=== PATIENT | female | born 2000 | race Hispanic/Latino ===

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

== ENCOUNTER 2020-07-06 13:34 | Day surgery (SDC) | payer OTHER, SELFPAY ==
[2020-07-06 14:51] VITALS: BMI 29.2
[2020-07-06] MEDS ORDERED: hydrALAZINE 20 MG/ML VIAL SLOW IVP PRN (15:03)
--- NOTE | 2020-07-06 15:11 | PDOC.FPROB ---
FMR OB H&P: HPI - History of Present Illness Chief Complaint: Contractions Indentification: 20 y/o @ 26.5 wga by 19.6 wk sono History of Present Illness: 20 y/o @ 26.5 wga by 19.6 wk bev presents to OB triage today with complaints of contractions. She stated that she started feeling contractions one week ago that last an hour at a time and when asked about the character of the pain she describes the pain as "strong" and points to her lower abdomen. She is currently having this pain as we are talking with her. She also states that 8-9 days ago she began have progressive vaginal leakage of white fluid that has soaked her underwear multiple times requiring her to change them. She does admit to intercourse once, one week ago. She states that she has also been having a headache and blurry vision which started with her last which she de livered in June of last year. She denies HTN or DM in this , however, she admits to a UTI earlier in this which was treated with antibiotics. She also admits to N/V with a couple epsiodes of the past week. She denies VD, VB, CP/SOB. She also denies dysuria, polyuria, and hematuria at this time. Primary Care Physician: [facility] FMR OB H&P: Current - Care : 2 Para: 1 Gestational age: 26.5 wga Due date: 10/07/2020 Dating Criteria: 19.6 wk sono - OB Labs Blood type: O RH: positive Antibody Screen: negative HIV: negative RPR: negative HepBsAg: negative Rubella: immune Gonorrhea: negative Chlamydia: negative 1 hour gtt: 106 3 hour GTT: 85 FMR OB H&P: History - Past Medical History PMH: -none - OB History OB History: Jun 2019: PPROM @ 36.6 wga based on [facility] records, - REFRIGERATION INSTALLER History REFRIGERATION INSTALLER History: None - Surgical History Sx History: none - Social History Social History: no tobacco, no etoh, no drug use - Family History Family History: Mother: DM Father: DM FMR OB H&P: Medications - Current Home Medications: Medication Instructions Recorded Confirmed Type Vitamin 1 tab PO DAILY #60 tab 07/17/19 07/06/20 Rx Allergies/Adverse Reactions: Allergies Allergy/AdvReac Type Severity Reaction Status Date / Time No Known Allergies Allergy Verified 07/06/20 14:52 FMR OB H&P: ROS - Review of Systems General: denies: fever/chills Eyes: reports: vision changes, double vision. denies: eye pain ENT: denies: nasal congestion, rhinorrhea Cardiovascular: denies: chest pain, palpitation, edema Respiratory: denies: cough, congestion, shortness of breath Gastrointestinal: reports: abdominal pain (lower abdominal pain), nausea, vomiting. denies: indigestion, bloating, cramping, diarrhea, constipation, bright red blood Genitourinary (Female): reports: other (leakage of fluid; white). denies: incontinence, dysuria, hematuria, polyuria, vaginal discharge, vaginal pain, vaginal bleeding Musculoskeletal: denies: pain, stiffness, tenderness Neurologic: denies: numbness, syncope Integumentary: denies: itching FMR OB H&P: Vital Signs - Heart Tones Baseline: 140 Variability: moderate Acceleration: present Deceleration: absent Category: category 1 [place] contractions every: none seen FMR OB H&P: Physical Exam - Physical Exam General: NAD, awake, alert and oriented HEENT: normocephalic and atraumatic Neck: supple Chest: non-tender to palpation Heart: RRR, normal S1/S2, no murmurs/rubs/gallops, pulses present, no edema General: CTAB, no respiratory distress, good air movement, no rales/rhonchi, no wheezing, no retractions Abdomen: gravid Musculoskeletal: normal gait and station, pulses present, FROM in all four extremities Skin: no rash, good tugor, capillary refill <2 seconds Lymphatic: no unusual bruising or bleeding Psychiatric: intact recent and remote memory, good judgement and insight, normal mood and affect - Pelvic Exam Vulva: normal hair distribution Cervix: no masses, no lesions FMR OB H&P: A/P Disposition: 20 y/o @ 26.5 wga by 19.6 wk sono presents today with complaint of feeling contractions. ##sIUP in second trimester -at 26.5 wga currently -FHTs show HR in 140s-150s, moderate variability, some accels seen, no decels, no contractions seen on toco -short interval between d/t PPROM at 36.6 wga in 06/2019, however this had poor dating and was LTC -maternal labs neg exception being varicella non-immune -maternal VSS, no severe SBPs -had UTI in 1st trimester (Klebsiella Aerogenes) txt with abx -U/S based on [facility] record from 06/07/20 shows hadlock 57.3%. Posterior placenta. Head Cephalic. ##short interval -aware ##hx of PPROM -in 06/2019 -at 36.6 however this was presumed to be poor dating d/t being LTC and poor f/u ##hx of Varicella non-immune -aware ##hx of TB risk/exposure -aware -based on [facility] records, has been in [place] for past 4 years Plan: will obtain FFN, Amnisure, VP3, GC/Chlamydia, UA. will also obtain ultrasound for cervical length before SVE. Addendum: FFN was positive. Amnisure negative. U/s for cervical length was 4.7cm. VP3, UA, Chlamydia/GC swabs pending. FHT continued to show no contractions. FHR show 14 0s-150s with cat 1 strip. In this setting, patient is not in labor, so safe for d/c. Pt has close f/u with [facility] with appointment on Jul.18, told patient to keep this appointment. Return precautions given. Told patient if she has severe/worsening abdominal pain, LOF, or vaginal bleeding to come back for evaluation. Will f/u with patient on pending results. Assessment and Plan discussed with Dr. العلي and Dr. Mcneil who were agreed with plan.
[2020-07-06 15:54] LABS: Amnisure Test No Membranes Rupture (No Rupture)
[2020-07-06 15:55] LABS: Amnisure Internal Control QC ACCEPTABLE (ACCEPTABLE)
[2020-07-06 16:09] LABS: FFN Internal QC Analyzer PASS (PASS); FFN Internal QC Cassette PASS (PASS); Fetal Fibronectin POSITIVE (Negative)
--- NOTE | 2020-07-06 16:11 | ULT ---
Obstetric sonogram Limited HISTORY: Evaluate for cervical length. FINDINGS: Transabdominal and transvaginal imaging. Cervix is closed and 4.7 cm. Single intrauterine gestation partially visualized in transverse presentation.
[2020-07-06 16:34] LABS: Bacteria/HPF None Seen HPF (None Seen); Bilirubin Negative (Negative); Blood, Urine Negative (Negative); Clarity Clear (Clear); Glucose, Urine (Dipstick) Normal (Negative); Ketone, Urine Negative (Negative); Leukocyte Negative Leu/uL (Negative); Nitrite Negative (Negative); Protein, Urine (Dipstick) Negative (Neg-Trace); RBC/HPF 0-3 HPF (0-3); Specific Gravity, Urine 1.007 (1.002-1.036); Squamous Epithelial None Seen HPF (0-3); Urobilinogen Normal mg/dL (Less than 2); WBC/HPF 0-3 HPF (0-3); pH, Urine 7.5 (5.0-9.0)
[2020-07-09 21:00] LABS: Chlam.trachomatis by PCR,Urine Not Detected (NotDetected)
== END 2020-07-06 16:41 | disposition home or self-care (01) ==
LOC: L&D/OP 13:34
PROVIDERS: ATTEND Family Medicine
DX: O47.02 False labor before 37 completed weeks of gestation, second trimester (principal); Z3A.26 26 weeks gestation of pregnancy
CPT/HCPCS: 76815; 81003; 82731; 84112; 87480; 87491; 87510; 87591; 87660

== ENCOUNTER 2020-08-22 14:26 | Day surgery (SDC) | payer OTHER ==
[2020-08-22] MEDS ORDERED: hydrALAZINE 20 MG/ML VIAL SLOW IVP PRN (15:44)
--- NOTE | 2020-08-22 16:08 | PDOC.FPROB ---
FMR OB H&P: HPI - History of Present Illness History of Present Illness: 20 yo @ 33.3 by 19.6 wk US presents with concern for LOF. Reports at 3:00 this morning she awoke in bed with yellow fluid. Due to transportation concerns, she was unable to present until now. Reports intermittent vague contractions/abdominal cramping. Reports vaginal discharge, white, that has been present during . Denies vaginal bleeding. Reports movement. She reports a hx of burning with urination at various times throughout . She is currently treated with macrobid for Klebsiella UTI, on day #4 of abx. Primary Care Physician: Marleny FMR OB H&P: Current - Care : 2 Para: 0101 Gestational age: 33.3 Due date: 10/07/20 Dating Criteria: .6 - OB Labs Blood type: O RH: positive Antibody Screen: negative HIV: negative RPR: negative HepBsAg: negative Rubella: immune Quad screen: negative Urine drug screen: negative Gonorrhea: negative Chlamydia: negative 1 hour gtt: 2hr GTT normal GBS: unknown H&H: 10.8->10.1 - Anatomy Survey Anatomy survey: @ 22.6 S=D, male, no anomalies FMR OB H&P: History - Past Medical History PMH: none - OB History OB History: Jun 2019: PPROM @ 36.6, vaginal - Surgical History Sx History: none - Social History Social History: no tobacco, alcohol, drug use - Family History Family History: mother and father: DM FMR OB H&P: Medications - Current Home Medications: Medication Instructions Recorded Confirmed Type Vitamin 1 tab PO DAILY #60 tab 07/17/19 07/06/20 Rx Allergies/Adverse Reactions: Allergies Allergy/AdvReac Type Severity Reaction Status Date / Time No Known Allergies Allergy Verified 07/06/20 14:52 FMR OB H&P: ROS - Review of Systems General: denies: fever/chills, weight/appetite/sleep changes Eyes: denies: double vision, scotomas ENT: denies: nasal congestion, sore throat Cardiovascular: denies: palpitation, edema Respiratory: denies: cough, shortness of breath Gastrointestinal: denies: nausea, vomiting, diarrhea Genitourinary (Female): reports: dysuria, vaginal discharge, contractions. denies: vaginal bleeding Musculoskeletal: denies: pain, decrease range of motion Neurologic: denies: syncope, weakness Psychological: denies: depression, anxiety FMR OB H&P: Vital Signs - Heart Tones Baseline: 140 Variability: moderate Acceleration: present Deceleration: absent Category: category 1 [place] contractions every: no consistent contractions FMR OB H&P: Physical Exam - Physical Exam General: NAD, awake, alert and oriented HEENT: normocephalic and atraumatic, MMM Neck: supple Heart: pulses present, no edema General: no respiratory distress, good air movement Abdomen: soft, gravid, non-tender Musculoskeletal: normal gait and station, FROM in all four extremities Skin: good tugor, capillary refill <2 seconds Lymphatic: no unusual bruising or bleeding Psychiatric: intact recent and remote memory, normal mood and affect - Pelvic Exam SVE: no pooling of fluid, cough test negative, mod amount of white/velásquez discharg FMR OB H&P: A/P Discussion: Date/Time: 08/22/20 1607 20 y/o @ 33.3 wga by 19.6 wk bev presents today with concern for LOF. Concern for LOF in sIUP -FHT: HR in 140s-150s, moderate variability, +accel, no decels, 3 small contractions seen in >1 hr period -maternal VSS -U/S based on [facility] record from 06/07/20 shows hadlock 57.3%. Posterior placenta. Head Cephalic. -06/2020 had +FFN, cervical length 4.7 Bacteriuria/UTI - patient with UTI in 1st trimester (Klebsiella Aerogenes) txt with abx - Was prescribed macrobid 07/28 for + urine culture as well but patient started treatment 07/19, currently taking Anemia of - Hgb 10.8->10.1, on iron supplementation Short interval - last delivery 06/2019, vaginal Hx of PPROM -at 36.6 however this was presumed to be poor dating d/t being LTC and poor f/u Hx of Varicella non-immune -IgG 370 06/26/20 Plan: No consistent contractions, amnisure negative. Continue macrobid prescribed outpatient. Vaginal discharge on exam, will follow up VP3 & GCC results with patients. Return precautions given. She has follow up with [facility] 06/24. This H&P was discussed with Dr. Grajeda who agree with the above documentation and plan. Addendum - Attending - Attending Attestation Date/Time: 08/22/201916 I personally evaluated the patient and discussed the management with Dr. Tony. I agree with the History, Examination, Assessment and Plan documented above. No e/o SROM. Significant amount of discharge. Cultures pending.
[2020-08-22 16:21] LABS: Amnisure Internal Control QC ACCEPTABLE (ACCEPTABLE)
[2020-08-22 16:27] LABS: Amnisure Test No Membranes Rupture (No Rupture)
[2020-08-24 20:37] LABS: Chlamydia by PCR Not Detected (NotDetected); GC by PCR Not Detected (NotDetected)
== END 2020-08-22 17:30 | disposition home or self-care (01) ==
LOC: L&D/OP 14:26
PROVIDERS: ATTEND Obstetrics & Gynecology
DX: O99.891 Other specified diseases and conditions complicating pregnancy (principal); N89.8 Other specified noninflammatory disorders of vagina; O99.013 Anemia complicating pregnancy, third trimester; D64.9 Anemia, unspecified; Z3A.33 33 weeks gestation of pregnancy; Z87.59 Personal history of other complications of pregnancy, childbirth and the puerperium
CPT/HCPCS: 84112; 87480; 87491; 87510; 87591; 87660

== ENCOUNTER 2020-09-28 15:50 | Inpatient (IN) | payer MEDICAID, OTHER, SELFPAY ==
[2020-09-28] MEDS ORDERED: hydrALAZINE 20 MG/ML VIAL SLOW IVP PRN (16:07)
--- NOTE | 2020-09-28 16:09 | PDOC.FPROB ---
FMR OB H&P: HPI - History of Present Illness Chief Complaint: contractions Indentification: 20 yo at 38.5 wga by 19.5 wk sono History of Present Illness: Patient is a English-speaking patient; plater helper was used to obtain history. She reports she started having contractions yesterday, off and on. Some were quite painful. She states she was checked in the clinic by her OB and was 3 cm. Her pain is mostly in the front of her abdomen, but tolerable. She denies vaginal bleeding, vaginal discharge, LOF. Endorses movement. Primary Care Physician: ESTEVAN Dobson FMR OB H&P: Current - Care : 2 Para: 0101 Gestational age: 38.5 Due date: 10/07/2020 Dating Criteria: 19.5 wk sono Course/Complications: Iron deficiency anemia in Short IPI Gram neg bacteriuria in , resolved - OB Labs Blood type: O RH: positive Antibody Screen: negative HIV: negative RPR: negative HepBsAg: negative Rubella: immune Gonorrhea: negative Chlamydia: negative GBS: negative H&H: 10.8/31.8 Platelets: 269 Additional labs: 2hr GTT: 77/102/101 Hep C neg Klebsiella UTI w/ TYLER neg Varicella Immune FMR OB H&P: History - Past Medical History PMH: Denies - OB History OB History: 1 at 36.6, PPROM w/ delivery, suboptimal dating, late to care - 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 - Family History Family History: Mother/Father: diabetes FMR OB H&P: Medications - Current Home Medications: Medication Instructions Recorded Confirmed Type Vitamin 1 tab PO DAILY #60 tab 07/17/19 07/06/20 Rx Allergies/Adverse Reactions: Allergies Allergy/AdvReac Type Severity Reaction Status Date / Time No Known Allergies Allergy Verified 07/06/20 14:52 FMR OB H&P: ROS - Review of Systems General: denies: fever/chills Eyes: denies: vision changes ENT: denies: nasal congestion, sore throat Cardiovascular: denies: chest pain Respiratory: denies: cough, shortness of breath Gastrointestinal: reports: abdominal pain. denies: nausea, vomiting Genitourinary (Female): reports: contractions. denies: dysuria, vaginal discharge, vaginal bleeding, vaginal pressure Musculoskeletal: reports: swelling (mild feet swelling). denies: pain Neurologic: denies: numbness, weakness Integumentary: denies: itching, rash Hematologic/Lymphatic: denies: prolonged or excessive bleeding Psychological: denies: depression, anxiety FMR OB H&P: Vital Signs - Maternal Vital signs: BP 117/68 - Heart Tones Baseline: 140 Variability: moderate Acceleration: present Deceleration: absent Category: category 1 [place] contractions every: 5 min FMR OB H&P: Physical Exam - Physical Exam General: NAD, awake, alert and oriented HEENT: normocephalic and atraumatic, no scleral icterus, grossly normal vision, grossly normal hearing Heart: RRR, normal S1/S2, no murmurs/rubs/gallops General: CTAB, no respiratory distress Abdomen: soft, gravid, non-tender Musculoskeletal: pulses present Neurological: no focal deficit Skin: no rash Lymphatic: no unusual bruising or bleeding Psychiatric: normal mood and affect - Pelvic Exam SVE: 3/50/-2 per RN Membranes: intact Presentation: palpated head on cervical check Estimated Weight: 7 lbs FMR OB H&P: A/P Disposition: observe on L&D for labor rule out. Discussion: Date/Time: 09/28/20 1607 20 yo at 38.5 wga here for: Contractions Labor rule out - continue to monitor for 2 hours - recheck cervix around 1845. - if significant change, consider admission. - if no change, may discharge home. - reassuring FHTs, category 1 strip This H&P was discussed with Dr. Palomo, who agrees with the above documentation and plan. Signature: Sam Carter MD PGY2
[2020-09-28 19:08] VITALS: BMI 35.3
[2020-09-28] MEDS ORDERED: NS / Oxytocin 40 units/1000ml 1,000 ML IV PRN (21:36)
[2020-09-28] MEDS ORDERED: Docusate 100 MG CAP PO PRN (21:36)
[2020-09-28] MEDS ORDERED: Lidocaine 1% (PF) 30 ML VIAL SC PRN (21:36)
[2020-09-28] MEDS ORDERED: Ondansetron PF 4 MG/2 ML Vial IVP PRN (21:36)
[2020-09-28] MEDS ORDERED: Promethazine HCl 25 MG/ML VIAL IM PRN (21:36)
--- NOTE | 2020-09-28 21:36 | PDOC.LDPN ---
Labor & Delivery Progress Note - Subjective Subjective: painful contractions - Objective Vital signs reviewed and normal: yes General: NAD Uterine fundus: non tender SVE: /-2 FHT: category 1, variability present [place] contractions every: 4 mins, irregular Plan: continue plan of care, pitocin for augmentation -: 20 yo at 38.6 wga here for: Contractions Labor rule out - continue to monitor - SVE 2 @ 1830, /2 @ 2029 - reassuring FHTs, category 1 strip - Will admit for labor augmentation - Let patient eat, start pit - She does not want an epidural - pain control with PRN stadol, revisit epidural if pain unable to be controlled This H&P was discussed with Dr. Palomo, who agrees with the above documentation and plan.
[2020-09-28] MEDS ORDERED: NS w/ Oxytocin 30 units 500 ML IV PRN (21:56)
[2020-09-28] MEDS ORDERED: NS w/ Oxytocin 30 units 500 ML IVPB SCH ×2 (22:00)
[2020-09-28] MEDS: Butorphanol Tartrate 1 MG/ML VIAL SLOW IVP PRN (22:30)
--- NOTE | 2020-09-29 01:20 | PDOC.LDPN ---
Labor & Delivery Progress Note - Subjective Subjective: comfortable - Objective Vital signs reviewed and normal: yes General: NAD SVE: 4.5/60/-2 per nurse @ 0200 FHT: category 1, variability present [place] contractions every: 3-5 mins Plan: continue plan of care, pitocin for augmentation -: Pitocin not started after last check because patient was concerned about finding child caregiver private home for their 1yo. is now in room with childcare for other sibling. Patient currently eating. 20 yo at 38.6 wga here for: Labor, augmentation - continue to monitor - SVE 3/50/-2 @ 1830, 4/50/-2 @ 2030, 4.5/60/-2 @0200 - reassuring FHTs, category 1 strip - will start pit at next check - She does not want an epidural - pain control with PRN stadol, revisit epidural if pain unable to be controlled
[2020-09-29 03:41] LABS: Hemoglobin 9.8 g/dL (12.0-16.0); Mean Corpuscular HGB CONC 33.4 g/dL (32.0-36.0); Mean Corpuscular Volume 80.7 fL (78.0-98.0); Mean Platelet Volume 10.9 fL (7.4-10.4); Platelet Count 239 thou/uL (130-400); RBC Distribution Width 14.4 % (11.5-14.5); Red Blood Cell (RBC) Count 3.62 mill/uL (4.00-5.20); White Blood Cell (WBC) Count 10.9 thou/uL (4.8-10.8)
[2020-09-29 04:15] LABS: HBSAg Index 0.24 S/CO (0-0.99); Hep B Surf Ag Non-Reactive S/CO (NonReactive)
[2020-09-29 04:22] LABS: Syphilis Antibody Nonreactive (Nonreactive); Syphilis Antibody Index 0.03 S/CO (<1.00 Non-Reactive)
--- NOTE | 2020-09-29 05:28 | PDOC.LDPN ---
Labor & Delivery Progress Note - Subjective Subjective: comfortable - Objective Vital signs reviewed and normal: yes General: NAD SVE: 4.5/60/-2 FHT: category 1, variability present [place] contractions every: 3-5 mins Plan: continue plan of care, labor augmentation, pitocin for augmentation -: 20 yo at 38.6 wga here for: Labor, augmentation - continue to monitor - SVE 50/-2 @ 1830, 450/-2 @ 2030, 4.5/60/-2 @0200 4.5/60/-2 @ 0600 - reassuring FHTs, category 1 strip, baseline 150 - will start pit - She does not want an epidural - pain control with PRN stadol, revisit epidural if pain unable to be controlled
[2020-09-29] MEDS: Lactated Ringer's 1,000 ML IV SCH ×2 (06:00→15:24)
--- NOTE | 2020-09-29 09:22 | PDOC.LDPN ---
Labor & Delivery Progress Note - Subjective Subjective: comfortable - Objective Vital signs reviewed and normal: yes General: NAD SVE: /-1 @ 08:14 AM FHT: category 1 [place] contractions every: 4-5 minutes Plan: continue plan of care -: 20 yo at 38.6 wga here for: Labor, augmentation - SVE 350/-2 @ 1830, 4/50/-2 @ 2030, 4.5/60/-2 @0200 4.5/60/-2 @ 0600, started pit @0600 check, pit currently at 8 @ 09:15 - latest SVE @ 0814 /-1 - reassuring FHTs, category 1 strip, accels noted, baseline 140s, toco ctx about every 5 minute - VSS: BP 110/60, HR 68 - Patient continues to not desire an epidural - pain control with PRN stadol for now, revisit epidural if pain unable to be controlled Plan: Continue with current management. Will recheck in 2 hours @11:15 am. Discussed plan with Dr. Jones who agreed to plan. Addendum - Attending - Attending Attestation Date/Time: 09/29/20 4771 I personally evaluated the patient and discussed the management with Dr. Lentz. I agree with the History, Examination, Assessment and Plan documented above.
[2020-09-29] MEDS: Butorphanol Tartrate 1 MG/ML VIAL SLOW IVP PRN ×2 (09:36→11:59)
--- NOTE | 2020-09-29 10:44 | PDOC.LDPN ---
Labor & Delivery Progress Note - Subjective Subjective: painful contractions - Objective Vital signs reviewed and normal: yes General: NAD, resting, breathing through contractions SVE: /-1 FHT: category 1, variability present [place] contractions every: q2-3 min cxns AROM: clear fluid Plan: continue plan of care, labor augmentation -: 20 yo at 38.6 WGA by 19.5 wk sono. DANIEL 10/07/20 sIUP in labor - SVE 50/-2 @ 1830 50/-2 @ 2030 4.60/-2 @0200 4./-2 @ 0600 /-1 @ 0814 /1 @ 1000, AROM @ 1030 clear fluid - FHTs cat 1, baseline 135, mod variability, no decels, accels present - VSS: 1 elevated BP 140s systolic, otherwise VS wnl - continue stadol PRN for pain control - recheck SVE @ [address] Jnoes, who is in agreement with the plan. Castro Galarza MD PGY3 Addendum - Attending - Attending Attestation Date/Time: 09/29/20 1151 I personally evaluated the patient and discussed the management with Dr. Galarza. I agree with the History, Examination, Assessment and Plan documented above.
[2020-09-29] MEDS ORDERED: Misoprostol 200 MCG TAB ONE (11:37)
--- NOTE | 2020-09-29 12:21 | PDOC.LDPN ---
Labor & Delivery Progress Note - Subjective Subjective: painful contractions - Objective Vital signs reviewed and normal: yes General: breathing through contractions SVE: FHT: category 1, early decelerations [place] contractions every: q2-3 Plan: continue plan of care -: 20 yo at 38.6 WGA by 19.5 wk sono. DANIEL 10/07/20 sIUP in labor - SVE 50/-2 @ 1830 50/-2 @ 2030 4.560/-2 @0200 4.60/-2 @ 0600 /-1 @ 0814 /-1 @ 1000, AROM @ 1030 clear fluid @ 1200 - FHTs cat 1, baseline 135, mod variability, early decelerations present - pitocin is at 6 - VS reviewed and WNL - continue stadol PRN for pain control - recheck SVE @ [address] Jones, who is in agreement with the plan. Castro Galarza MD PGY3 Addendum - Attending - Attending Attestation Date/Time: 09/29/20 1124 I personally evaluated the patient and discussed the management with Dr. Galarza. I agree with the History, Examination, Assessment and Plan documented above.
--- NOTE | 2020-09-29 13:37 | PDOC.OPDEL ---
OB Operative/Delivery Note Delivery Dr/Surgeon: Dr. Geovanni Rosario Pre-Delivery Diagnosis: active labor Procedure/Post Delivery Dx: spontaneous vaginal delivery Weeks gestation: 38 (38.6) Anesthesia: epidural - Additional Findings/Plan Placenta delivered: spontaneous Repaired Obstetrical Laceration: 2nd degree Estimated blood loss: QBL of 37 ml Compilations/Other Findings: Delivering physician: Dr. Jones attending delivered , Dr. Galarza delivered placenta and performed laceration repair Procedure: spontaneous vaginal delivery Anesthesia: Local anesthesia for repair QBL: 37 mL Pre-Op Diagnosis: 1. Term intrauterine in labor 2. Hx of iron deficiency anemia Post-op Diagnosis: 1. Term intrauterine , delivered 2. Same as above Indications: A 20 yo presents in labor Delivery Note: 20 yo @ 38.6 wga by 19.5 wk sono delivered a viable M infant at 1249 on 09/29/2020. Patient experienced rapid progression of cervical dilation towards the end of her second stage of labor. A vigorous M infant was delivered over an intact perineum by Dr. Jones. Anterior shoulder and then remainder of the body delivered. No nuchal cord. Cord was clamped and cut, cord blood was collected, and was taken to warmer. Dr Galarza then delivered placenta, which was delivered intact with a 3 vessel cord noted. Fundal massage was performed and fundus was firm. The cervix and vagina were inspected. A 2nd degree perineal laceration was repaired with 3.0 vicryl in the usual fashion with good approximation and hemostasis noted. Apgars were 9/9 at 1 & 5 minutes respectively. Patient tolerated delivery well and will go to after routine recovery. Post delivery plan: routine recovery Addendum - Attending - Attending Attestation Date/Time: 09/29/20 3628 Management as above per Dr. Galaraz. Rapid progress with controlled of vigourous by me. Delivery of placenta and repair per Dr. Galarza. I agree with the History, Examination, Assessment and Plan documented above.
[2020-09-29 14:12] LABS: SARS-CoV-2 PCR by NAA Indeterminate (NotDetected)
[2020-09-29] MEDS: Misoprostol 100 MCG TAB PO SCH ×2 (14:20→20:54)
[2020-09-29] MEDS: Ibuprofen 800 MG TAB PO SCH ×2 (14:20→20:55)
[2020-09-29] MEDS ORDERED: Bisacodyl 10 MG SUPP PR PRN (15:11)
[2020-09-29] MEDS ORDERED: Milk Of Magnesia 30 ML UDCUP PO PRN (15:11)
[2020-09-29] MEDS ORDERED: Lanolin Ointment 7 GM TUBE TOP PRN (15:11)
[2020-09-29] MEDS ORDERED: hydrALAZINE 20 MG/ML VIAL SLOW IVP PRN (15:11)
[2020-09-29] MEDS ORDERED: NS / Oxytocin 40 units/1000ml 1,000 ML IV SCH (15:11)
[2020-09-29] MEDS ORDERED: Preparation H Ointment 28 GM TUBE PR PRN (15:11)
[2020-09-29] MEDS: Ferrous Sulfate 325 MG TAB PO SCH (17:17)
[2020-09-29] MEDS: Docusate Calcium (SURFAK) 240 MG CAP PO SCH (20:55)
[2020-09-30] MEDS: Acetaminophen 325 MG TAB PO PRN ×2 (00:25→08:22)
[2020-09-30 03:44] LABS: SARS-CoV-2 PCR by NAA Not Detected (NotDetected)
--- NOTE | 2020-09-30 04:11 | PDOC.PP ---
Post Progress Note Post Day #: 1 Subjective: Pain moderately controlled. Bottle feeding. Minimal lochia. Ambulating, tolerating PO. PO intake tolerated: yes Flatus: yes Ambulation: yes Vital Signs (12 hours) Temp Pulse Resp BP Pulse Ox 09/30/20 00:20 98.5 F 78 18 117/55 L 09/29/20 20:50 98.0 F 74 18 115/53 L 98 09/29/20 16:50 71 20 106/52 L Weight Weight 81.647 kg - Physical Examination General: NAD Cardiovascular: no m/r/g, RRR Respiratory: clear to auscultation bilaterally, non-labored breathing Abdominal: + bowel sounds, appropriately TTP Fundus firm & at: below umbilicus Neurological: no gross focal deficits Psychiatric: A&Ox3, normal affect Result Diagrams: 09/28/20 02:25 Additional Labs: Post Labs Hep Bs Antigen Non-Reactive S/CO (NonReactive) 09/28/20 02:25 Blood Type O POSITIVE 09/28/20 02:25 - Assessment/Plan 20yo now delivered on 09/29 sIUP, delivered PPD#1 - Meeting PP milestones. Continue routine care - F/u at [facility] in 2wks - Undecided on contraception, discussed options. Continue to discuss at f/u Addendum - Attending - Attending Attestation Date/Time: 09/30/20 7115 I personally evaluated the patient and discussed the management with Dr. Dobson. I agree with the History, Examination, Assessment and Plan documented above.
[2020-09-30] MEDS: Ibuprofen 800 MG TAB PO SCH ×2 (05:31→07:35)
[2020-09-30] MEDS: Docusate Calcium (SURFAK) 240 MG CAP PO SCH (08:21)
[2020-09-30] MEDS: Ferrous Sulfate 325 MG TAB PO SCH ×2 (08:21→17:35)
[2020-09-30] MEDS ORDERED: Adacel (T-DAP) 0.5 ML SYRINGE IM ONE (09:00)
[2020-09-30] MEDS ORDERED: Prenatal Vitamin 1 TAB PO SCH (09:00)
[2020-09-30 12:06] VITALS: BP 116/72; TEMP 98.1
[2020-09-30] MEDS ORDERED: Ketorolac Tromethamine 30 MG/ML VIAL IM SCH (13:30)
[2020-09-30] MEDS ORDERED: Ibuprofen 800 MG TAB PO SCH (22:00)
== END 2020-09-30 18:00 | disposition home or self-care (01) | DRG 807 ==
LOC: L&D/OP 15:50 → L&D 21:37 → 3SW 09-29 15:10
PROVIDERS: ADMIT Obstetrics & Gynecology; ATTEND Obstetrics & Gynecology
PROC: 10E0XZZ Delivery of Products of Conception, External Approach (ICD-10-PCS; principal; 2020-09-29)
PROC: 0KQM0ZZ Repair Perineum Muscle, Open Approach (ICD-10-PCS; 2020-09-29)
PROC: 10907ZC Drainage of Amniotic Fluid, Therapeutic from Products of Conception, Via Natural or Artificial Opening (ICD-10-PCS; 2020-09-29)
DX: O70.1 Second degree perineal laceration during delivery (principal); Z37.0 Single live birth; Z3A.38 38 weeks gestation of pregnancy; Z20.822 Contact with and (suspected) exposure to COVID-19
CPT/HCPCS: 85027; 86780; 86850; 86900; 86901; 87340; 87635; 99285; J0595; J1885; J2590; U0003; U0005